=== PATIENT | male | born 1970 | race Caucasian/White ===

== ENCOUNTER 2020-04-01 08:45 | Outpatient (REF) | payer OTHER, SELFPAY ==
[2020-04-01 11:20] LABS: MANUAL DIFF FLAG NO
[2020-04-01 11:27] LABS: Basophils Percent Auto 0.3 % (0-2); Eosinophils Absolute Auto 0.1 X10*3/uL (0.0-0.4); Eosinophils Percent Auto 1.2 % (0-4); Hematocrit 42.8 % (42-52); Hemoglobin 14.4 g/dl (14.0-18.0); Imm Gran Abs Auto 0.03 X10*3/uL (0.00-0.03); Imm Gran Pct Auto 0.4 % (0.0-0.4); Lymphocytes Percent Auto 26.8 % (20-40); Mean Corpuscular HGB Conc 33.6 g/dl (31.0-36.0); Mean Corpuscular Hemoglobin 30.8 pg (27.0-33.0); Mean Corpuscular Volume 91.5 fL (80-98); Mean Platelet Volume 10.8 fL (9.4-12.4); Monocytes Absolute Auto 0.6 X10*3/uL (0.1-1.2); Monocytes Percent Auto 8.1 % (2-11); Neutrophils Absolute Auto 4.6 X10*3/uL (2.0-8.3); Neutrophils Percent Auto 63.2 % (45-73); Platelet Count 306 X10*3/uL (160-400); Red Blood Count 4.68 X10*6/uL (4.60-5.80); Red Cell Distribution Width 11.6 % (11.0-16.0); White Blood Count 7.3 X10*3/uL (4.8-10.8)
[2020-04-01 11:58] LABS: Glucose Urine UA NEG (NEG); Leukocyte Esterase Urine NEG (NEG); Nitrite Urine NEG (NEG); Urine Blood NEG (NEG); Urine Ketones NEG (NEG); Urine Protein NEG (NEG-TRACE)
[2020-04-01 12:00] LABS: Alanine Aminotransferase 54 U/L (0-40); Albumin Level 4.6 g/dL (3.5-5.0); Alkaline Phosphatase 67 U/L (39-117); Anion Gap 12 (12-20); Aspartate Amino Transferase 36 U/L (5-37); Bilirubin Total 0.9 mg/dL (0.0-1.0); Blood Urea Nitrogen 15 mg/dL (9-16); Calcium 9.5 mg/dL (8.4-10.2); Carbon Dioxide 30 mmol/L (22-29); Chloride 103 mmol/L (96-108); Cholesterol 185 mg/dL; Estimated Glomerular Filt Rate > 60; Glucose Fasting 112 mg/dL (60-99); HDL Cholesterol 57 mg/dL; LDL Cholesterol Calculated 99 mg/dl; Potassium 4.7 mmol/l (3.3-5.1); Sodium 140 mmol/L (135-145); Total Protein 7.9 g/dL (6.5-8.0); Triglycerides 149 mg/dL
[2020-04-01 12:06] LABS: Prostate Specific Antigen Scr 0.68 ng/mL (<0.05-4.0)
[2020-04-01 12:07] LABS: Appearance Urine CLEAR; Color Urine YELLOW
== END 2020-04-01 08:46 | disposition home or self-care (01) ==
LOC: HO.HMGCLDS 08:45
PROVIDERS: PCP Internal Medicine; Visit Provider Internal Medicine
DX: Z00.00 Encounter for general adult medical examination without abnormal findings (principal)
CPT/HCPCS: 36415; 80053; 80061; 81003; 84153; 85025

== ENCOUNTER 2020-04-21 11:33 | Day surgery (SDC) | payer OTHER, SELFPAY ==
[2020-04-16 09:28] VITALS: BMI 27.0
--- NOTE | 2020-04-18 10:17 | P.CONAN_ITS ---
Documented by User: Radhika Mcleod 04/18/20 10:19 HPI - Anesthesia Eval Consult details Narrative: 49yo M for Colonoscopy [facility] Past Medical History Medical History (Updated 04/16/20 @ 09:17 by Ashley Stern) Anxiety History of diverticulitis Hyperlipidemia Surgical History Surgical History (Updated 04/16/20 @ 09:17 by Ashley Stern) History of ankle surgery History of carpal tunnel surgery of right wrist Social History Social History Are you a primary ostomy care nurse to a significant other at home: No Do you presently have visiting nurse or other home services: No Smoking Status: Never smoker Use of substances other than those prescribed or required for medical reasons: Yes Substance Use Frequency: Occasionally Have you been hit, kicked, punched, or otherwise hurt by someone within the past year? If so, by whom?: No Advance Directives: No Advance Directives Information Provided: No Advance Directives on File: No Recently lost weight without trying: No Meds Allergies Allergy/AdvReac Type Severity Reaction Status Date / Time Penicillins [PENICILLINS] Allergy Intermediate HIVES Verified 04/21/20 11:47 Home Medications Medication Instructions Recorded Confirmed Type atorvastatin 1 tab PO DAILY 04/16/20 04/16/20 History bfulkrvxkoqs-jgmk-nrqvl acid 1 tab PO DAILY 04/16/20 04/16/20 History [Centrum] paroxetine HCl 1 tab PO DAILY 04/16/20 04/21/20 History Exam Exam Date and Time: April 18, 2020 1017 Height,Weight and Vital Signs: Height 5 ft 7.5 in Weight 79.379 kg Pertinent Lab Results Pertinent Lab Results: Laboratory Tests 04/01/20 04/01/20 09:03 09:03 WBC 7.3 Hgb 14.4 Hct 42.8 Plt Count 306 Sodium 140 Potassium 4.7 Chloride 103 Carbon Dioxide 30 H BUN 15 Creatinine 1.04 Assessment and Plan Assessment Anesthesia Assessment: Chart Reviewed Documented by User: Ginette Grubbs 04/21/20 13:15 [facility] Past Medical History Medical History (Updated 04/16/20 @ 09:17 by Ashley Stern) Anxiety History of diverticulitis Hyperlipidemia Surgical History Surgical History (Updated 04/16/20 @ 09:17 by Ashley Stern) History of ankle surgery History of carpal tunnel surgery of right wrist Social History Social History Are you a primary ostomy care nurse to a significant other at home: No Do you presently have visiting nurse or other home services: No Smoking Status: Never smoker Use of substances other than those prescribed or required for medical reasons: Yes Substance Use Frequency: Occasionally Have you been hit, kicked, punched, or otherwise hurt by someone within the past year? If so, by whom?: No Advance Directives: No Advance Directives Information Provided: No Advance Directives on File: No Recently lost weight without trying: No Meds Allergies Allergy/AdvReac Type Severity Reaction Status Date / Time Penicillins [PENICILLINS] Allergy Intermediate HIVES Verified 04/21/20 11:47 Home Medications Medication Instructions Recorded Confirmed Type atorvastatin 1 tab PO DAILY 04/16/20 04/16/20 History nhraxqcfpzbr-fikf-hjuva acid 1 tab PO DAILY 04/16/20 04/16/20 History [Centrum] paroxetine HCl 1 tab PO DAILY 04/16/20 04/21/20 History Exam Airway Mallampati Class: I TM Dist: >3cm Neck ROM: Full Heart: RRR Lungs: CTA BL Assessment and Plan Final Anesthetic Review NPO: Yes (Sip water med) ASA Class: II Final Preanesthetic Review: Meds/Allgs Chart Reviewed and Consent Obtained/Reviewed Patient Risk: Intermediate Procedure Risk: Intermediate Anesthetic Plan Anesthetic Plan: MAC: Disposition: Standard PACU
[2020-04-21 11:48] VITALS: BP 137/75; PULSE 63; RESP 16; TEMP 36.2; O2SAT 99
[2020-04-21] MEDS: Lactated Ringers 1,000 ML 100 ML IVCONT (12:06)
[2020-04-21 14:14] VITALS: BP 91/47; PULSE 61; RESP 16; TEMP 36.4; O2SAT 96
--- NOTE | 2020-04-21 14:16 | PM.OP ---
Brief Operative Note Date of Service: 04/21/20 Pre-op diagnosis: Screening Post-op diagnosis: other (Rectal polyps, Sigmoid diverticulosis, Small internal hemorrhoids) Procedure: Colonoscopy to cecum and TI with biopsy and removal of polyps Surgeon: Sathish Bird Anesthesia: MAC Estimated blood loss (mL): 3.0 Pathology: other (A. Rectal polyps) Condition: stable Disposition: PACU
[2020-04-21 14:29] VITALS: BP 108/69; PULSE 64; RESP 16; TEMP 36.4; O2SAT 97
--- NOTE | 2020-04-21 14:43 | OP_ITS ---
SURGEON: Sathish Bird MD INDICATIONS: The patient presents for evaluation of colorectal cancer screening. Full consent has been obtained from him for this, including risks of bleeding and perforation. PREOPERATIVE DIAGNOSIS: Colorectal cancer screening. POSTOPERATIVE DIAGNOSIS: PROCEDURE PERFORMED: Colonoscopy to the cecum and terminal ileum with biopsy and removal of polyps. ESTIMATED BLOOD LOSS: COMPLICATIONS: ANESTHESIA: Monitored anesthesia care. ASSISTANTS: SPECIMENS: POSTOPERATIVE DIAGNOSES: Colorectal cancer screening, small colon polyps, occasional sigmoid diverticulosis, small internal hemorrhoids. DESCRIPTION OF PROCEDURE: The patient was placed in the left lateral decubitus position. The digital rectal exam revealed no abnormalities. The Olympus video pediatric colonoscope was entered into the rectum and advanced easily to the cecum. Once in the cecum, I did identify normal-appearing cecal pouch with appendiceal orifice and a normal-appearing ileocecal valve. The terminal ileum was cannulated and appeared normal. The scope was withdrawn back in the colon. The entire cecum and ileocecal valve appeared normal. The scope was slowly withdrawn assessing all mucosal surfaces carefully. Preparation was excellent. There were occasional diverticula in the sigmoid colon. I did not visualize any sign of colitis nor angiodysplasia. In the rectum, were several flat less than 5 mm polyps, which were all biopsied and completely removed and placed in a same container. The scope was retroflexed in the rectum visualizing some minimal internal hemorrhoids, but no other pathology. The scope was straightened out and withdrawn from the patient. He tolerated the procedure well and was returned to the recovery area in stable condition. IMPRESSION: 1. Small rectal polyps, status post biopsy and removal. 2. Mild diverticulosis. 3. Internal hemorrhoids. PLAN: The results of the biopsies will be checked. If these are tubular adenoma, I would recommend a followup colonoscopy in 5 years. If they are only hyperplastic, I would recommend a followup colonoscopy in 10 years. He would otherwise see me on a p.r.n. basis. MD DUANE Fuentes/LILIA / [phone]
== END 2020-04-21 15:24 | disposition home or self-care (01) ==
PROVIDERS: PCP Internal Medicine; Visit Provider Internal Medicine
PROC: 0DJD8ZZ Inspection of Lower Intestinal Tract, Via Natural or Artificial Opening Endoscopic (ICD-10-PCS; CPT 45378; principal; 2020-04-21 12:30)
DX: Z12.11 Encounter for screening for malignant neoplasm of colon (principal); K62.1 Rectal polyp; K57.30 Diverticulosis of large intestine without perforation or abscess without bleeding; K64.8 Other hemorrhoids; Z88.0 Allergy status to penicillin
CPT/HCPCS: 45380; 88305

== ENCOUNTER 2022-09-03 08:48 | Outpatient (REF) | payer BC, SELFPAY ==
--- NOTE | ~2022-09-03 | XR_ITS ---
EXAMINATION: XR ANKLE, LEFT CLINICAL INFORMATION: Pain COMPARISON: None available. TECHNIQUE: AP, lateral, and mortise views of the left ankle. FINDINGS: There is a plate and screws in the distal fibular shaft. There is a single screw in the medial malleolus. Orthopedic hardware appears intact. No fracture. Mild arthritis at the anterior tibiotalar joint. Soft tissues are normal. XR/XR ankle LT min 3V IMPRESSION: Orthopedic hardware in the distal fibular shaft and medial malleolus. No fracture seen.
== END 2022-09-03 08:49 | disposition home or self-care (01) ==
LOC: HO.HOSX 08:48
PROVIDERS: Visit Provider Physician Assistant
DX: M25.572 Pain in left ankle and joints of left foot (principal); T14.8XXA Other injury of unspecified body region, initial encounter; X58.XXXA Exposure to other specified factors, initial encounter; Y93.9 Activity, unspecified; Y92.9 Unspecified place or not applicable; Y99.9 Unspecified external cause status
CPT/HCPCS: 73610; 99202

== ENCOUNTER 2022-11-09 13:55 | Outpatient (REF) | payer MEDICARE, SELFPAY ==
--- NOTE | ~2022-11-09 | XR_ITS ---
EXAMINATION: XR LUMBOSACRAL SPINE CLINICAL INFORMATION: Low back pain. COMPARISON: CT abdomen and pelvis of 02/04/2022. TECHNIQUE: 3 views of the lumbosacral spine. FINDINGS: There are 5 nonrib-bearing lumbar vertebrae. There is mild spurring at the L1-L2 level and L3-L4 level. Pedicles appear intact. No destructive bony lesion identified. No acute fracture, spondylolisthesis, or spondylolysis is identified. Sacroiliac joints unremarkable. Mild sclerosis about the facet joints present. Mildly increased sclerosis is seen at the L5-S1 level consistent with facet arthropathy. XR/XR lumbar spine 2-3V IMPRESSION: No acute fracture, spondylolisthesis, or spondylolysis of the lumbar spine. Mild bilateral facet arthropathy L5-S1.
== END 2022-11-09 13:56 | disposition home or self-care (01) ==
LOC: HO.XRAY 13:55
PROVIDERS: PCP Internal Medicine; Visit Provider Internal Medicine
DX: M54.50 Low back pain, unspecified (principal)
CPT/HCPCS: 72100

== ENCOUNTER 2023-07-18 08:54 | Outpatient (AMB) | payer MEDICARE, SELFPAY ==
--- NOTE | 2023-07-18 08:59 | MHC.OFFVIS ---
Intake Vital Signs 07/18/23 09:08 Height 5 ft 7.5 in Weight 170 lb BMI 26.2 Intake Visit Reasons: New prob RT hand RF & MF trigger Intake Note: Trevin a 52 year old right hand dominant male presents today for an evaluation of right hand RF & MF. Patient reports locking and catching for about a year, as well as his left hand middle finger. No previous tx. States pain in the mornings with waking up and fingers will be locked. Allergies Penicillins [PENICILLINS] Allergy (Intermediate, Verified 07/18/23 09:08) HIVES HPI New prob RT hand RF & MF trigger HPI Details 52-year-old male who presents to the office today for evaluation of right ring and middle finger pain for about 1 year. He states he has pain, catching, locking in his middle and ring finger which is aggravated in the mornings and he wakes up with his fingers locked. He has not had any treatment in the past. He does not have a history of diabetes. 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 [employer] All systems reviewed & are unremarkable except as noted in HPI and below Physical Exam Vital Signs: BMI result Body Mass Index 26.2 Const General: cooperative, healthy appearing, comfortable, no acute distress, well developed and alert Orientation/consciousness: patient oriented x3 HEENT Head: Yes normal to inspection, Yes normocephalic and Yes atraumatic Eyes General: appearance normal, both eyes and all related structures Neck Neck: Yes normal visual inspection and Yes no lymphadenopathy Resp Effort & Inspection: normal respiratory effort and able to speak in complete sentences Cardio Rate: regular rate Peripheral pulses: Peripheral pulses 2+ throughout GI Inspection: Yes normal to inspection Palpation (GI): Soft to palpation Skin General skin exam: no rashes or lesions noted Neuro General: patient oriented x3 Extrem Other: Right middle finger, right ring finger, & left middle finger: Tender nodule along the A1 trent with active catching and locking. NVI. Psych Appearance: grossly normal Mental Status: mental status grossly normal Assessment & Plan Assessment & Plan (1) Trigger finger, left: Code(s): M65.30 - Trigger finger, unspecified finger Qualifiers: Trigger finger location: middle finger Qualified Code(s): M65.332 - Trigger finger, left middle finger (2) Trigger finger, right ring finger: Code(s): M65.341 - Trigger finger, right ring finger Plan We discussed options which include conservative vs operative treatment. Since the patient has been symptomatic for several months and it is impacting their daily life, the decision was made to undergo Trigger release. We discussed risk, benefits and alternatives. Risk including but not limited to infection, stiffness, ongoing trigger or catching. He does understand all this and would like to proceed with right middle and ring finger trigger release with Dr. Velazquez. He will be booked accordingly. Consents were signed today Patient Instructions: Scribed for Chad Galaviz PA-C, by Say Guaman medical territory manager, on 07/18/2023 at 9:00 AM FILIPE. Chad La PA-C, have personally reviewed and agree with the information entered by the scribe. Coding Level of Care Code Est Pt Level 4 (80616) Diagnoses Trigger middle finger of left hand M65.332 Trigger finger location: middle finger Trigger finger, right ring finger M65.341
[2023-07-18 09:08] VITALS: BMI 26.2
== END 2023-07-18 10:00 | disposition home or self-care (01) ==
PROVIDERS: PCP Internal Medicine; Visit Provider Physician Assistant
DX: M65.332 Trigger finger, left middle finger (principal); M65.341 Trigger finger, right ring finger
CPT/HCPCS: 99214

== ENCOUNTER → 2023-07-18 08:54 | Outpatient (BNVA) | payer MEDICARE, SELFPAY | PROVIDERS: PCP Internal Medicine; Visit Provider Physician Assistant | DX: M65.332 Trigger finger, left middle finger (principal); M65.341 Trigger finger, right ring finger | CPT/HCPCS: 99212 ==

== ENCOUNTER 2023-08-15 08:14 | Day surgery (SDC) | payer BC, SELFPAY ==
--- NOTE | 2023-08-15 09:09 | MHC.SHP ---
Pre-Procedural Eval Section A - 24 Hr Update-Section A only Date of Service: 08/15/23 The patient is an INPATIENT: No Changes since office visit: No Cold of Flu in the past 2 weeks, No New Medical Problems, No Changes in Medication and No Patient answered all questions The patient has been examined within 24 hours of the surgical procedure. The History & Physical has been completed within 30 days and I have reviewed it.: Yes Section B - Complete if H&P > 30 days Chief Complaint: trigger finger 3rd and 4th digits Allergies: Allergies Allergy/AdvReac Type Severity Reaction Status Date / Time Penicillins [PENICILLINS] Allergy Intermediate HIVES Verified 07/18/23 09:08 Exam Exam Comment: Right middle and ring finger trigger fingers Plan Diagnosis/Plan: Unchanged I have reviewed the history and physical and performed a pertinent physical examination on my patient. No changes have occurred unless specified. Time Spent With Patient Time: Total time managing care of this patient today ____ minutes.
--- NOTE | 2023-08-15 09:10 | W.PM.OPN ---
Operative Note Operative Note Date of Service: 08/15/23 Narrative: Operative Note Preop diagnosis: 1. Right middle finger Trigger finger 2. Right ring finger trigger finger Postop diagnosis: Same Procedure: 1. Right ring finger A1 trent release 2. Right middle finger A1 trent release Surgeon: Vy Velazquez MD Anesthesia: local block using 1% lidocaine with epinephrine Findings: No locking or catching after A1 trent release EBL: Less than 5 mL Tourniquet time: None Specimens: None Complications: None Disposition: Brought to recovery room in stable condition Plan: Follow-up for 10-14 days for wound check and suture removal Indications: The patient is 52 years old, with right middle finger and right ring finger trigger fingers that have been unresponsive to nonoperative management. The risks and benefits of operative treatment including but not limited to risk of damage to blood vessels, nerves, tendons, infection, persistent pain, persistent symptoms, recurrence or possible need for additional surgery were discussed with the patient and the patient wishes to proceed with surgery. Procedure: Once consent was obtained a local block was performed in the preop area using a combination of 1% lidocaine with epinephrine. The patient was then brought back to the operating suite and placed on the operative table in supine position. The right upper extremity was prepped and draped in a standard surgical fashion. Once assured that we had a good block, a 1.5 cm oblique incision was made centered over the A1 trent of the right ring finger . The incision was made through the skin to the subcutaneous tissues using a #15 blade. Careful dissection was made down to the level of the A1 trent using tenotomy scissors, with care being taken to protect the nearby neurovascular structures. A longitudinal incision was made in the A1 trent 1st using a #15 blade, then using tenotomy scissors under direct visualization. The A1 trent was noted to be thickened. Following our A1 trent release, we no longer saw any locking or catching of the digit with flexion and extension. Once assured that we had a good block, a 1.5 cm oblique incision was made centered over the A1 trent of the right middle finger . The incision was made through the skin to the subcutaneous tissues using a #15 blade. Careful dissection was made down to the level of the A1 trent using tenotomy scissors, with care being taken to protect the nearby neurovascular structures. A longitudinal incision was made in the A1 trent 1st using a #15 blade, then using tenotomy scissors under direct visualization. The A1 trent was noted to be thickened. Following our A1 trent release, we no longer saw any locking or catching of the digit with flexion and extension. Once satisfied with our A1 trent release the wound was copiously irrigated with normal saline and hemostasis was obtained with a brief period of local pressure. The skin edges were reapproximated with some 5.0 nylon suture material and a sterile dressing was applied. The patient appears to have tolerated the procedure well and with no complications. All digits were well vascularized at the conclusion of the case.
[2023-08-15 09:24] VITALS: BMI 27.0
[2023-08-15 13:02] VITALS: BP 136/75; PULSE 103; RESP 16; O2SAT 97
== END 2023-08-15 13:04 | disposition home or self-care (01) ==
PROVIDERS: PCP Internal Medicine; Visit Provider Orthopaedic Surgery
PROC: (CPT 26055; principal; 2023-08-15 10:30)
DX: M65.331 Trigger finger, right middle finger (principal); M65.341 Trigger finger, right ring finger; E78.5 Hyperlipidemia, unspecified; F41.9 Anxiety disorder, unspecified; Z88.0 Allergy status to penicillin; Z98.890 Other specified postprocedural states
CPT/HCPCS: 26055 ×2; J0171

== ENCOUNTER → 2023-08-15 08:14 | Outpatient (BNV) | payer BC, SELFPAY | PROVIDERS: PCP Internal Medicine; Visit Provider Orthopaedic Surgery | DX: M65.341 Trigger finger, right ring finger (principal); M65.331 Trigger finger, right middle finger | CPT/HCPCS: 26055 ==

== ENCOUNTER 2023-08-26 08:18 | Outpatient (AMB) | payer MEDICARE, SELFPAY ==
--- NOTE | 2023-08-26 08:21 | MHC.OFFVIS ---
Intake Vital Signs 08/26/23 08:22 Height 5 ft 7 in Weight 175 lb BMI 27.4 Handedness Right Intake Visit Reasons: PO-Rt MF & RF Trigger Release 08/15/23 Intake Note: Trevin is a 52 year old right hand dominant male who presents today for a post op appointment s/p Rt MF & RF Trigger Release 08/15/23. Patient reports he is doing well, however he notices that he is not able to bend his finger all the way to make a complete fist. Allergies Penicillins [PENICILLINS] Allergy (Intermediate, Verified 08/26/23 08:23) HIVES HPI PO-Rt MF & RF Trigger Release 08/15/23 HPI Details 52-year-old male who presents in the office today 11 days status post right middle finger and right ring finger A1 trent release, which was performed on 08/15/[address] Velazquez. While in the office today the patient reports overall he is doing well. However, he reports he is unable to bend his middle and ring finger to make a closed fist. 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 Sutures intact. No surrounding erythema or drainage. No signs of infection. Able to make a closed fist, not able to close fist tightly. Able to perform full finger extension. Sensation intact. Assessment & Plan Assessment & Plan (1) Trigger finger, right ring finger: Onset Date: ~08/15/23 Comment: Right ring finger A1 trent release; Dr. Velazquez Code(s): M65.341 - Trigger finger, right ring finger (2) Trigger finger, right middle finger: Onset Date: ~08/15/23 Comment: Right middle finger A1 trent release; Dr. Velazquez Code(s): M65.331 - Trigger finger, right middle finger Plan Mr. Sánchez is a 52-year-old male who presents in the office today 11 days status post right middle finger and right ring finger A1 trent release, which was performed on 08/15/[address] Velazquez. While in the office today the patient reports overall he is doing well. However, he reports he is unable to bend his middle and ring finger to make a closed fist. Sutures were removed and steri-stripes were applied. I demonstrated exercises to the patient while in the office today on ROM. Follow up will be PRN, or sooner if needed. Patient Instructions: Scribed by oNry Edge, medical and scientific illustrator, for Leah Hamilton PA-C on 08/26/2023 at 8:21 am, EST. Coding Level of Care Code Global (14718) Diagnoses Trigger finger, right ring finger M65.341 Trigger finger, right middle finger M65.331
[2023-08-26 08:22] VITALS: BMI 27.4
== END 2023-08-26 08:52 | disposition home or self-care (01) ==
PROVIDERS: PCP Internal Medicine; Visit Provider Physician Assistant
DX: M65.341 Trigger finger, right ring finger (principal); M65.331 Trigger finger, right middle finger
CPT/HCPCS: 99024

== ENCOUNTER → 2023-08-26 08:18 | Outpatient (BNVA) | payer MEDICARE, SELFPAY | PROVIDERS: PCP Internal Medicine; Visit Provider Physician Assistant | DX: M65.341 Trigger finger, right ring finger (principal); M65.331 Trigger finger, right middle finger | CPT/HCPCS: 99212 ==

== ENCOUNTER 2024-01-10 07:33 | Outpatient (REF) | payer MEDICARE, SELFPAY ==
[2024-01-10 10:29] LABS: MANUAL DIFF FLAG NO
[2024-01-10 10:36] LABS: Basophils Percent Auto 0.5 % (0-2); Eosinophils Absolute Auto 0.1 X10*3/uL (0.0-0.4); Eosinophils Percent Auto 2.5 % (0-4); Hematocrit 38.3 % (42.0-52.0); Hemoglobin 13.4 g/dl (14.0-18.0); Imm Gran Abs Auto 0.02 X10*3/uL (0.00-0.03); Imm Gran Pct Auto 0.4 % (0.0-0.4); Lymphocytes Absolute Auto 1.6 X10*3/uL (1.2-4.9); Lymphocytes Percent Auto 27.6 % (20-40); Mean Corpuscular Hemoglobin 31.4 pg (27.0-33.0); Mean Corpuscular Volume 89.7 fL (80.0-98.0); Mean Platelet Volume 10.2 fL (9.4-12.4); Monocytes Absolute Auto 0.4 X10*3/uL (0.1-1.2); Monocytes Percent Auto 7.5 % (2-11); Neutrophils Absolute Auto 3.5 x10*3/uL (2.0-8.3); Neutrophils Percent Auto 61.5 % (45-73); Platelet Count 286 X10*3/uL (160-400); Red Blood Count 4.27 X10*6/uL (4.60-5.80); Red Cell Distribution Width 11.9 % (11.0-16.0); White Blood Count 5.6 X10*3/uL (4.8-10.8)
[2024-01-10 11:04] LABS: Alanine Aminotransferase 59 U/L (0-40); Albumin Level 4.4 g/dL (3.5-5.0); Alkaline Phosphatase 60 U/L (39-117); Anion Gap 14 (12-20); Aspartate Amino Transferase 36 U/L (5-37); Bilirubin Total 0.8 mg/dL (0.0-1.0); Blood Urea Nitrogen 18 mg/dL (9-16); Calcium 9.9 mg/dL (8.4-10.2); Carbon Dioxide 24 mmol/L (22-29); Chloride 105 mmol/L (96-108); Cholesterol 197 mg/dL (<200); Estimated Glomerular Filt Rate > 60; Glucose Fasting 119 mg/dL (60-99); HDL Cholesterol 60 mg/dL (>40); LDL Cholesterol Calculated 83 mg/dL (<100); Potassium 3.7 mmol/L (3.3-5.1); Sodium 139 mmol/L (135-145); Total Protein 7.7 g/dL (6.5-8.0); Triglycerides 270 mg/dL (<150)
[2024-01-10 11:36] LABS: Prostate Specific Antigen 0.71 ng/mL (<0.05-4.0)
== END 2024-01-10 07:34 | disposition home or self-care (01) ==
LOC: HO.HMGCLDS 07:33
PROVIDERS: PCP Internal Medicine; Visit Provider Internal Medicine
DX: E78.00 Pure hypercholesterolemia, unspecified (principal); Z12.5 Encounter for screening for malignant neoplasm of prostate; K63.5 Polyp of colon; K57.92 Diverticulitis of intestine, part unspecified, without perforation or abscess without bleeding
CPT/HCPCS: 36415; 80053; 80061; 84153; 85025

== ENCOUNTER 2024-04-10 09:00 | Outpatient (REF) | payer MEDICARE, SELFPAY ==
[2024-04-10 09:58] LABS: MANUAL DIFF FLAG NO
[2024-04-10 10:07] LABS: Basophils Percent Auto 0.7 % (0-2); Eosinophils Absolute Auto 0.1 X10*3/uL (0.0-0.4); Eosinophils Percent Auto 1.7 % (0-4); Hematocrit 39.3 % (42.0-52.0); Hemoglobin 13.6 g/dl (14.0-18.0); Imm Gran Abs Auto 0.01 X10*3/uL (0.00-0.03); Imm Gran Pct Auto 0.2 % (0.0-0.4); Lymphocytes Absolute Auto 1.6 X10*3/uL (1.2-4.9); Mean Corpuscular HGB Conc 34.6 g/dl (31.0-36.0); Mean Corpuscular Hemoglobin 31.2 pg (27.0-33.0); Mean Corpuscular Volume 90.1 fL (80.0-98.0); Mean Platelet Volume 10.2 fL (9.4-12.4); Monocytes Absolute Auto 0.4 X10*3/uL (0.1-1.2); Monocytes Percent Auto 6.4 % (2-11); Neutrophils Absolute Auto 3.7 x10*3/uL (2.0-8.3); Platelet Count 269 X10*3/uL (160-400); Red Blood Count 4.36 X10*6/uL (4.60-5.80); Red Cell Distribution Width 11.5 % (11.0-16.0); White Blood Count 5.8 X10*3/uL (4.8-10.8)
[2024-04-10 10:28] LABS: Estimated Average Glucose 120 mg/dL; Hemoglobin A1C 139.1083 umol/L; Hemoglobin A1c % 5.8 % (<6.0)
[2024-04-10 10:48] LABS: Anion Gap 11 (12-20); Blood Urea Nitrogen 14 mg/dL (9-16); Calcium 9.4 mg/dL (8.4-10.2); Carbon Dioxide 28 mmol/L (22-29); Chloride 102 mmol/L (96-108); Estimated Glomerular Filt Rate > 60; Glucose Random 163 mg/dL (60-115); Iron 117 mcg/dL (45-160); Percent Iron Saturation 46 % (15-50); Potassium 3.9 mmol/L (3.3-5.1); Sodium 137 mmol/L (135-145); Total Iron Binding Capacity 255 mcg/dL (228-428); Unsaturated Iron Binding 138 ug/dL
== END 2024-04-10 09:01 | disposition home or self-care (01) ==
LOC: HO.HMGCLDS 09:00
PROVIDERS: PCP Internal Medicine; Visit Provider Internal Medicine
DX: E78.5 Hyperlipidemia, unspecified (principal); R73.03 Prediabetes; D64.9 Anemia, unspecified
CPT/HCPCS: 36415; 80048; 83036; 83540; 85025

== ENCOUNTER 2024-10-17 15:32 | Outpatient (AMB) | payer MEDICARE, SELFPAY ==
--- NOTE | 2024-10-17 15:29 | MHC.PC.OV ---
Vital Signs 10/17/24 16:06 Height 5 ft 7.5 in Weight 170 lb BMI 26.2 BP 120/70 Blood Pressure Location Lt brachial Position Sitting Pulse 63 Pulse Source Pulse Oximeter Temp 97.8 F Temp Source Axillary Pulse Oximetry (%) 98 Oxygen Delivery Method Room Air Intake Visit Reasons: Routine Other Spatial Scientist Required: No Accompanied by: Self / Same As Patient Allergies Penicillins [PENICILLINS] Allergy (Intermediate, Verified 10/17/24 15:29) HIVES Tobacco use date assessed: 10/17/24 Dental Screening Dental Screen Date: 10/17/24 Did you have a dental visit in the last 12 months?: Yes Did you have a dental problem in the last 6 months where you did not have access to dental care?: No [facility] Medical History (Updated 10/17/24 @ 16:30 by Michael Harrington MD) History of diverticulitis Anxiety Hyperlipidemia Surgical History History of colonoscopy (~04/21/20) History of ankle surgery History of carpal tunnel surgery of right wrist Family History (Updated 10/17/24 @ 16:11 by Lilly Hudson MA) Mother No problems noted. Father No problems noted. 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 1. Little interest or pleasure in doing things: not at all 2. Feeling down, depressed, or hopeless: several days (sometimes) 3. Trouble falling or staying asleep, or sleeping too much: not at all 4. Feeling tired or having little energy: not at all 5. Poor appetite or overeating: not at all 6. Feeling bad about yourself - or that you are a failure or have let yourself or your family down: not at all 7. Trouble concentrating on things, such as reading the newspaper or watching television: not at all 8. Moving or speaking so slowly that other people could have noticed. Or the opposite - being so fidgety or restless that you have been moving around a lot more than usual: not at all 9. Thoughts that you would be better off or of hurting yourself in some way: not at all Total score: 1 Source: Developed by Drs. Sathish Conway, Josie Diamond, Marcin Fox and colleagues, with an educational bill from [employer]. Thrive Questionnaire Date Thrive assessed: 10/17/24 I am a: Patient Within the past 12 months, did the food you bought not last and you didn't have the money to get more?: Never true Within the past 12 months, did you worry whether your food would run out before you got money to buy more?: Never true Do you have trouble paying for medicines?: No Do you have trouble getting transportation to medical appointments?: No Do you have trouble paying your heating and electricity bill?: No Do you have trouble taking care of your child, family member or friend?: No Do you have trouble with day-to-day activities such as bathing, preparing meals, shopping, managing finances, etc.?: No Are you currently unemployed and looking for a job?: No Are you interested in more education?: No THRIVE Score: 0 AUDIT C Alcohol Use Questionnaire (AUDIT-C) 1. How often do you have a drink containing alcohol?: Monthly or less 2. How many drinks containing alcohol do you have on a typical day when you are drinking?: 1 or 2 3. How often do you have six or more drinks on one occasion?: Less than monthly Total Score: 2 JC-7 AMB Questionnaire JC-7 Date JC - 7 assessed: 10/17/24 Feeling nervous, anxious, or on edge: 0 = Not at all Not being able to stop or control worryin = Not at all Worrying too much about different things: 0 = Not at all Trouble relaxin = Not at all Being so restless that it is hard to sit still: 0 = Not at all Becoming easily annoyed or irritable: 0 = Not at all Feeling afraid as if something awful might happen: 0 = Not at all Total JC-7 score (0-4 normal; 5-9 mild; 10-14 moderate; 15-21 severe): 0 Source: Developed by Drs. Sathish Conway, Josie Diamond, Marcin Fox and colleagues, with an educational bill from [employer]. Physical exam (Primary Care) Vital Signs: Last Vital Signs Temp 97.8 F 10/17/24 16:06 Pulse 63 10/17/24 16:06 BP 120/70 10/17/24 16:06 Pulse Ox 98 10/17/24 16:06 Oxygen Delivery Method Room Air 10/17/24 16:06 BMI result Body Mass Index 26.2 Tobacco/Smoking Status: Tobacco use Status Tobacco use date assessed 10/17/24 10/17/24 15:31 Patient Tobacco Use Status Never used Tobacco 10/17/24 16:14 e-Cigarette/Vaping Use Never Used 10/17/24 15:31 PHQ-9: PHQ-9 Score PHQ-9: Total score 1 10/17/24 16:14 Thrive Assessment: Date of Thrive Assessment Date Thrive assessed 10/17/24 10/17/24 15:31 Coding Level of Care Code New Pt Level 4 (07613) Complex EM visit Add On G2211 Diagnoses Hyperlipidemia E78.5 Assessment & Plan Assessment & Plan (1) Hyperlipidemia: Code(s): E78.5 - Hyperlipidemia, unspecified Category: Medical Plan: History of Present Illness - The patient is a 53-year-old male presenting with an annual wellness examination, including concerns regarding hypercholesterolemia, iron deficiency anemia, and hyperglycemia. - Hypercholesterolemia: The patient has experienced high cholesterol for the past 30 years and remains on medication for management. Concern over potential liver side effects was expressed. - Iron Deficiency Anemia: Low iron levels were identified by the patient over the past one to two years. The patient followed a recommendation to take a multivitamin with iron, although outcomes are currently unclear. - Hyperglycemia: The patient reports previous elevations in blood sugar levels, with no detailed information regarding the specific values or dates of these findings. 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 - Engages in regular physical activity, playing hockey twice a week and walking daily with a dog. - Resides with his , with adult children; one son recently moved to [facility] and a daughter started working as a nurse. - Occasional alcohol consumption, not daily. - The patient denies cigarette smoking but did not specify other substances. Review of Systems - General: Denies significant recent health changes. - Cardiovascular: Reports high cholesterol but denies further cardiovascular symptoms. - Hematological: Reports prior low iron levels but denies alternative hematological symptoms. - Endocrine: Reports previous high blood sugar but without specific current endocrine symptoms. Physical Exam General: Cooperative and healthy appearing Nutritional Appearance: Well nourished Orientation/consciousness: Patient oriented x3 Limitations: No limitations Head: Normal to inspection General: Appearance normal, both eyes and all related structures Neck: Normal visual inspection Chest: Normal palpation of entire chest wall Respiratory: Normal respiratory effort Neurology: Patient oriented x3 Results Plan 1. Hypercholesterolemia - Order lipid panel for assessment. - Continue medication; monitor liver function; advise dietary adjustments. 2. Iron Deficiency Anemia - Conduct lab tests for confirmation and management. - Consider continuation of iron supplementation and dietary iron sources. 3. Hyperglycemia - Perform blood glucose testing. - Lifestyle changes will be discussed if needed based on test outcomes. Discussion Notes I reviewed the patient's concerns during our discussion. For hypercholesterolemia, I addressed the need to continue current medication while emphasizing the importance of routine monitoring through laboratory tests to check for efficacy and any potential liver-related side effects. We discussed lifestyle and nutritional changes that could help manage cholesterol levels. Regarding iron deficiency anemia, I mentioned the importance of continued supplementation and suggested dietary adjustments to improve iron levels, with a plan to reassess through blood tests. For hyperglycemia, I explained plans for assessing current blood glucose levels and discussed potential management strategies including lifestyle and dietary changes that could be beneficial depending on test results. Additionally, the need for long-term monitoring of these conditions during follow-ups was emphasized. Patient Instructions - Get your lab work done at the designated laboratory for lipid levels and iron status. - Continue taking your prescribed cholesterol medication. - Continue your multivitamin with iron as advised and ensure a diet rich in iron. - Follow a healthy diet and maintain regular exercise for optimal blood sugar control. - Return for results discussion and further management based on lab outcomes. Orders: Orders Complete Blood Count no Diff Today E78.5 - Hyperlipidemia, unspecified Basic Metabolic Panel Today E78.5 - Hyperlipidemia, unspecified Lipid Panel Today E78.5 - Hyperlipidemia, unspecified Liver Panel Today E78.5 - Hyperlipidemia, unspecified Thyroid Stimulating Hormone Today E78.5 - Hyperlipidemia, unspecified UA and rflx microscopic Today E78.5 - Hyperlipidemia, unspecified
--- OUTSIDE RECORDS SUMMARY | 2024-10-17 15:42 | XMS_ITS | Patient Health Record ---
Author Organization [facility] Address [address] [place] [address] Care Team Providers Care Needle Board Repairer Name Role Phone Kevan Richards MD Primary Care Provider Sathish Iglesias Unavailable [phone] Allergies Allergen (clinical drug ingredient) Drug/Non Drug Allergy documented on EMR Reaction Allergy Type Onset Date Status penicillamine Penicillamine Unknown Drug Allergy Active Reason For Referral No Information Medications Medication SIG (Take, Route, Fr equency, Duration) Notes Start Date End Date Status PARoxetine HCl Activ e Centrum Adults Activ e Atorvastatin Calcium Active Immunizations Vaccine Route Administration Date Status Comme nts Influenza Unknown 02/27/2020 Administered Social History Tobacco Use: Social History Observation Description Date Details (start date - stop date) Never Smoker NA - NA Tobacco Use/Smoking Question Answer Notes Patient is a nonsmoker Alcohol Screen Question Answer Notes Did you have a drink contain ing alcohol in the past year? Yes How often did you have a dri nk containing alcohol in the past year? 2 to 3 times a week (3 points) How often did you have 6 or more drinks on one occasion in the past year? Less than monthly (1 point) Points 4 Interpretation Positive Section Notes: Nonsmoker; occ alcohol on e s Problems Problem Type SNOMED Code ICD Code Onset Dates Problem Status W/U Status Risk Notes Problem Screening for malignant neoplasm of colon (103752921) Encounter for screening for malignant neoplasm of colon (Z12.11) Active confirmed Problem Preprocedural examination (869711820885624) Preprocedural examination (Z01.818) Active confirmed Plan Of Treatment Future Test Test Name Order Date COLONOSCOPY 04/02/2020 Insurance Providers Payer Name Payer Address Payer Phone Subscriber Number Group Number Insured Name Patient Relationship to Insured Coverage Start Date Coverage End Date [place] [address] [place], [place] [phone] [id number] SAMM SERRANO Self - patient is the insured Medical (General) History Medical History History ICD Code Hyperlipidemia Anxiety Diverticulitis in 02/2020-treated with o utpatient antibiotics Denies [place],DM,CVA,Lung disease,renal dise ase Surgical History Surgery Date(Month/Year) ankle surgery - broken left carpal tunnel - right wrist
[2024-10-17 16:06] VITALS: BP 120/70; PULSE 63; TEMP 36.6; O2SAT 98; BMI 26.2
== END 2024-10-17 16:28 | disposition home or self-care (01) ==
LOC: HO.HMCHD 15:33
PROVIDERS: PCP Internal Medicine; Visit Provider Internal Medicine
DX: E78.5 Hyperlipidemia, unspecified (principal)

== ENCOUNTER → 2024-10-17 15:32 | Outpatient (BNVA) | payer MEDICARE, SELFPAY | PROVIDERS: PCP Internal Medicine; Visit Provider Internal Medicine | DX: E78.00 Pure hypercholesterolemia, unspecified (principal); D50.9 Iron deficiency anemia, unspecified; R73.9 Hyperglycemia, unspecified | CPT/HCPCS: 96127; 99202 ==

== ENCOUNTER 2024-10-29 09:19 | Outpatient (REF) | payer MEDICARE, SELFPAY ==
--- OUTSIDE RECORDS SUMMARY | 2024-10-29 10:03 | XMS_ITS | Patient Health Record ---
Author Organization [facility] Address [address] [place] [address] Care Team Providers Care Dairy Store Manager Name Role Phone Kevan Richards MD Primary Care Provider Sathish Iglesias Unavailable [phone] Allergies Allergen (clinical drug ingredient) Drug/Non Drug [...] Problem Status W/U Status Risk Notes Problem Encounter for screening for malignant neoplasm of colon (Z12.11) Active confirmed Problem Preprocedural examination ([id number]) Preprocedural examination (Z01.818) Active confirmed Plan Of Treatment Future Test Test Name Order Date COLONOSCOPY 04/02/2020 Insurance Providers Payer Name Payer Address Payer Phone Subscriber Number Group Number Insured Name Patient Relationship to Insured Coverage Start Date Coverage End Date [employer] [address] [place] [phone] [id number] SAMM SERRANO Self - patient is the insured Medical (General) History Medical History History ICD Code Hyperlipidemia Anxiety Diverticulitis in 02/2020-treated with o utpatient antibiotics Denies [place],DM,CVA,Lung disease,renal dise ase Surgical History Surgery Date(Month/Year) ankle surgery - broken left carpal tunnel - right wrist
[2024-10-29 13:08] LABS: Appearance Urine Clear; Color Urine Yellow; Glucose Urine UA Negative (Negative); Leukocyte Esterase Urine Negative (Negative); Nitrite Urine Negative (Negative); Specific Gravity - Urine 1.015 (1.005-1.025); Urine Blood Negative (Negative); Urine Ketones Negative (Negative); Urine Protein Negative (Neg-Trace)
[2024-10-29 13:31] LABS: Hematocrit 39.2 % (42.0-52.0); Hemoglobin 13.4 g/dl (14.0-18.0); Mean Corpuscular HGB Conc 34.2 g/dl (31.0-36.0); Mean Corpuscular Hemoglobin 31.3 pg (27.0-33.0); Mean Corpuscular Volume 91.6 fL (80.0-98.0); Mean Platelet Volume 10.5 fL (9.4-12.4); Platelet Count 294 X10*3/uL (160-400); Red Blood Count 4.28 X10*6/uL (4.60-5.80); Red Cell Distribution Width 11.8 % (11.0-16.0); White Blood Count 4.9 X10*3/uL (4.8-10.8)
[2024-10-29 13:42] LABS: Estimated Average Glucose 114 mg/dL; Hemoglobin A1c % 5.6 % (<6.0); Total Hemoglobin (HGBA1C) 3546.0428 umol/L
[2024-10-29 13:49] LABS: Alanine Aminotransferase 43 U/L (0-40); Albumin Level 4.5 g/dL (3.5-5.0); Alkaline Phosphatase 62 U/L (39-117); Anion Gap 10 (12-20); Aspartate Amino Transferase 35 U/L (5-37); Bilirubin Direct 0.3 mg/dL (0.0-0.5); Bilirubin Total 0.8 mg/dL (0.0-1.0); Blood Urea Nitrogen 11 mg/dL (9-16); Calcium 9.5 mg/dL (8.4-10.2); Carbon Dioxide 29 mmol/L (22-29); Chloride 105 mmol/L (96-108); Cholesterol 167 mg/dL (<200); Estimated Glomerular Filt Rate > 60; Glucose Random 105 mg/dL (60-115); HDL Cholesterol 60 mg/dL (>40); LDL Cholesterol Calculated 83 mg/dL (<100); Sodium 140 mmol/L (135-145); Total Protein 7.4 g/dL (6.5-8.0); Triglycerides 121 mg/dL (<150)
[2024-10-29 14:07] LABS: Thyroid Stimulating Hormone 1.19 uIU/mL (0.32-4.0)
== END 2024-10-29 09:20 | disposition home or self-care (01) ==
LOC: HO.HMGCLDS 09:19
PROVIDERS: PCP Internal Medicine; Visit Provider Internal Medicine
DX: R73.9 Hyperglycemia, unspecified (principal); E78.5 Hyperlipidemia, unspecified
CPT/HCPCS: 36415; 80048; 80061; 80076; 81003; 83036; 84443; 85027

== ENCOUNTER 2025-01-15 13:19 | Outpatient (REF) | payer BC, SELFPAY ==
[2025-01-15 16:50] LABS: PSA,Total (Free>4and<10) 0.92 ng/mL (0.00-4.00)
== END 2025-01-15 13:20 | disposition home or self-care (01) ==
LOC: HO.HMGCLDS 13:19
PROVIDERS: PCP Internal Medicine; Visit Provider Internal Medicine
DX: Z12.5 Encounter for screening for malignant neoplasm of prostate (principal)
CPT/HCPCS: 36415; 84153

== ENCOUNTER 2025-03-15 08:33 | Outpatient (AMB) | payer BC, SELFPAY ==
--- NOTE | 2025-03-15 08:09 | A.OFFPC_ITS ---
Vital Signs 03/15/25 08:10 Height 5 ft 7.5 in Weight 174 lb BMI 26.8 BP 128/80 Blood Pressure Location Lt brachial Position Sitting Pulse 62 Pulse Source Pulse Oximeter Temp 98.2 F Temp Source Temporal Artery Scan Pulse Oximetry (%) 98 Oxygen Delivery Method Room Air Intake Visit Reasons: ROBI/Dr. Maloney, re: Physical/ B12 injections Market Master Required: No Accompanied by: Self / Same As Patient Allergies Penicillins (PENICILLINS) Allergy (Intermediate, Verified 03/15/25 08:10) HIVES Medication List - Last Reconciled 03/15/25 by Gerardo Guajardo MD atorvastatin 20 mg PO BEDTIME yjocrdwvrysw-prim-ljtby acid 18-400 mg-mcg (Centrum) 1 tab PO DAILY paroxetine HCl 10 mg PO DAILY Tobacco use date assessed: 03/15/25 Dental Screening Dental Screen Date: 03/15/25 Did you have a dental visit in the last 12 months?: Yes Did you have a dental problem in the last 6 months where you did not have access to dental care?: No HPI HPI Comments History of Present Illness Details The patient is a 54 year old male presenting with lethargy and for follow-up on self-initiated vitamin B12 injections. He reports feeling lethar gic, having trouble waking up in the morning, taking naps during the day, and experiencing some cognitive clouding. Due to a history of low red blood cells and prediabetes, he independently started taking B12 injections and feels a temporary, placebo-like improvement in energy that subsequently wears off. The patient has a history of low iron levels and was previously instructed to take a daily vitamin with iron. His labs from approximately one year ago showed a hemoglobin of 13.4, a normal MCV, and an iron level of 117. He also has a history of hyperlipidemia and has been on a statin since age 24, with his current atorvastatin dose having been reduced from 40 mg to 20 mg. He is treated for anxiety with paroxetine 10 mg and has been unable to successfully wean off the medication after four attempts. 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 His sleep schedule is inconsistent, partly due to late hockey games, and he has difficulty falling asleep, often using screens late into the night. Medical History: - Prediabetes - Anxiety, chronic, with four failed att empts to wean off paroxetine - Hyperlipidemia, on statin therapy sin e age 24 - History of borderline anemia (hemoglob in 13.4) - History of low iron, managed with hair y vitamin with iron Medications: - Atorvastatin 20 mg for hyperlipidemia - Paroxetine 10 mg for anxiety - Daily vitamin with iron for history of low iron - Vitamin B12 injections (self-initiated ) for energy Diagnostic Results: - Labs from October (4 months prior): TSH n ormal. - Labs from March (1 year prior): Hem oglobin 13.4, MCV normal, Iron 117. Social History: - Employment: Works as an hatchery manager [employer]. - Exercise: Reports being active, playin g hockey twice a week and running occasionally. - Sleep: Reports an inconsistent sleep s chedule and uses screens late at night. - Diet: Avoids coffee and energy drinks after 2:00 PM. [facility] Medical History (Updated 03/15/25 @ 09:30 by Gerardo Guajardo MD) Fatigue History of diverticulitis Anxiety Hyperlipidemia Surgical History History of colonoscopy (~04/21/20) History of ankle surgery History of carpal tunnel surgery of right wrist Family History (Updated 03/15/25 @ 08:55 by Lilly Hudson MA) Mother No problems noted. Father No problems noted. 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 1. Little interest or pleasure in doing things: not at all 2. Feeling down, depressed, or hopeless: several days 3. Trouble falling or staying asleep, or sleeping too much: nearly every day 4. Feeling tired or having little energy: nearly every day 5. Poor appetite or overeating: not at all 6. Feeling bad about yourself - or that you are a failure or have let yourself or your family down: not at all 7. Trouble concentrating on things, such as reading the newspaper or watching television: not at all 8. Moving or speaking so slowly that other people could have noticed. Or the opposite - being so fidgety or restless that you have been moving around a lot more than usual: not at all 9. Thoughts that you would be better off or of hurting yourself in some way: not at all Total score: 7 Source: Developed by Drs. Sathish Conway, Josie Diamond, Marcin Fox and colleagues, with an educational bill from [employer] Thrive Questionnaire Date Thrive assessed: 03/15/25 I am a: Patient Within the past 12 months, did the food you bought not last and you didn't have the money to get more?: Never true Within the past 12 months, did you worry whether your food would run out before you got money to buy more?: Never true Do you have trouble paying for medicines?: No Do you have trouble getting transportation to medical appointments?: No Do you have trouble paying your heating and electricity bill?: No Do you have trouble taking care of your child, family member or friend?: No Do you have trouble with day-to-day activities such as bathing, preparing meals, shopping, managing finances, etc.?: No Are you currently unemployed and looking for a job?: No Are you interested in more education?: No THRIVE Score: 0 AUDIT C Alcohol Use Questionnaire (AUDIT-C) 1. How often do you have a drink containing alcohol?: Monthly or less 2. How many drinks containing alcohol do you have on a typical day when you are drinking?: 1 or 2 3. How often do you have six or more drinks on one occasion?: Less than monthly Total Score: 2 JC-7 AMB Questionnaire JC-7 Date JC - 7 assessed: 03/15/25 Feeling nervous, anxious, or on edge: 0 = Not at all Not being able to stop or control worryin = Not at all Worrying too much about different things: 0 = Not at all Trouble relaxin = Not at all Being so restless that it is hard to sit still: 0 = Not at all Becoming easily annoyed or irritable: 0 = Not at all Feeling afraid as if something awful might happen: 0 = Not at all Total JC-7 score (0-4 normal; 5-9 mild; 10-14 moderate; 15-21 severe): 0 Source: Developed by Drs. Sathish Conway, Josie Diamond, Marcin Fox and colleagues, with an educational bill from [employer] Review of Systems Narrative - Constitutional: Reports lethargy, fatigue, and daytime somnolence requiring naps. - Neurological: Reports cognitive clouding. Denies headaches or vision changes. - ENT: Reports mild snoring. - Cardiovascular: Denies chest pain. - Respiratory: Denies shortness of breath. - Gastrointestinal: Reports normal bowel movements. Denies nausea or vomiting. - Genitourinary: Reports normal urination. All systems reviewed & are unremarkable except as reviewed in HPI and above Physical exam (Primary Care) Vital Signs: Last Vital Signs Temp 98.2 F 03/15/25 08:10 Pulse 62 03/15/25 08:10 BP 128/80 03/15/25 08:10 Pulse Ox 98 03/15/25 08:10 Oxygen Delivery Method Room Air 03/15/25 08:10 BMI result Body Mass Index 26.8 Tobacco/Smoking Status: Tobacco use Status Tobacco use date assessed 03/15/25 03/15/25 08:11 Patient Tobacco Use Status Never used Tobacco 03/15/25 08:11 e-Cigarette/Vaping Use Never Used 03/15/25 08:11 PHQ-9: PHQ-9 Score PHQ-9: Total score 7 03/15/25 09:05 Thrive Assessment: Date of Thrive Assessment Date Thrive assessed 03/15/25 03/15/25 08:11 Narrative General: Alert and oriented, Well nourished, No acute distress, Reports feeling lethargic. Eye: Pupils are equal, round and reactive to light, Intact accommodation, Extraocular movements are intact, Normal conjunctiva, Vision unchanged. HENT: Normocephalic, Atraumatic, Tympanic membranes are clear, Normal hearing, Oral mucosa is moist, No pharyngeal erythema, Ear canals patent. Respiratory: Lungs CTA bilaterally, No wheeze, Respirations are non-labored. Cardiovascular: Regular rate, Regular rhythm, S1 auscultated, S2 auscultated, No murmur, Good pulses equal in all extremities, Normal peripheral perfusion, No edema. Gastrointestinal: Soft, Non-tender, Non-distended, Normal bowel sounds, No organomegaly. Musculoskeletal: Normal range of motion, Normal strength, No tenderness, No swelling, No deformity, Normal gait. Integumentary: Warm, Dry, [place], Intact. Neurologic: Alert, Oriented, Normal sensory, Normal motor function, No focal defects, Cranial Nerves II-XII are grossly intact, Normal deep tendon reflexes. Psychiatric: Cooperative, Appropriate mood & affect, Normal judgment. Coding Level of Care Code Est Pt Level 4 (25752) Complex EM visit Add On G2211 Diagnoses Fatigue, unspecified type R53.83 Fatigue type: unspecified Other hyperlipidemia E78.49 Hyperlipidemia type: other hyperlipidemia Anxiety F41.9 Assessment & Plan Assessment & Plan (1) Fatigue: Comment: - The patient's primary complaint is lethargy with associated daytime somnolence and cognitive clouding. - His self-initiated vitamin B12 injections are deemed unnecessary given his borderline anemia (Hgb 13.4) with a normal MCV, and the effect is likely placebo. - The differential diagnosis includes obstructive sleep apnea (BAILEE), vitamin D deficiency, and iron deficiency. - Hypothyroidism is less likely given a normal TSH four months ago. - The plan is to order a sleep study to evaluate for BAILEE and check labs for vitamin D, B12, folate, and an iron panel. - The patient was educated on sleep hygiene, including maintaining a consistent schedule and avoiding screens before bed. - He was advised to discontinue B12 injections. - Follow-up is planned in approximately two months to review test results. Code(s): R53.83 - Other fatigue Category: Medical Qualifiers: Fatigue type: unspecified Qualified Code(s): R53.83 - Other fatigue (2) Hyperlipidemia: Comment: - The patient has been on statin therapy since age 24 and is currently taking atorvastatin 20 mg. - The plan is to continue the current dosage. - We will repeat his labs in six months at his physical exam in October and reassess the need for continued statin therapy at that time. Code(s): E78.5 - Hyperlipidemia, unspecified Category: Medical Qualifiers: Hyperlipidemia type: other hyperlipidemia Qualified Code(s): E78.49 - Other hyperlipidemia (3) Anxiety: Comment: - The patient is managed on paroxetine 10 mg and reports a history of multiple unsuccessful attempts to wean off the medication. - The plan is to continue paroxetine 10 mg daily due to demonstrated need. Code(s): F41.9 - Anxiety disorder, unspecified Category: Medical Plan: Health Maintenance: - Sleep hygiene: Discussed the importance of a consistent sleep schedule and avoiding screens before bed to improve sleep quality. - Diet: Advised to avoid caffeine and energy drinks after 2 PM. - Exercise: Patient's current activity level, including playing hockey twice a week and running, was acknowledged as good. - Preventative Screening: Labs for vitamin B12, folate, vitamin D, and iron will be checked. - Cardiovascular Risk Reduction: Discussed the potential link between untreated sleep apnea and cardiac arrhythmias like atrial fibrillation. - Future Care: A physical exam is scheduled for October, where labs will be repeated to reassess statin therapy. Patient was informed and verbally consented to the use of an ambient scribe for clinic note documentation during this visit. Plan I explained to the patient that his symptoms of lethargy are unlikely to be from a vitamin B12 deficiency, as his previous labs do not support this, and advised that the temporary relief from B12 shots is likely a placebo effect. I discussed that his symptoms, including fatigue and mild snoring, are more suggestive of obstructive sleep apnea, a common but underdiagnosed condition that can lead to other health problems like atrial fibrillation. I have ordered a sleep study to investigate this and also ordered blood tests to check his vitamin D, B12, folate, and iron levels. We reviewed his medications, and I recommended he continue paroxetine for anxiety given his history of being unable to stop it. We agreed he would continue his atorvastatin for now, with a plan to re-evaluate the need for it after repeating labs at his physical in October. I provided guidance on sleep hygiene, such as maintaining a consistent schedule and avoiding screens before bed. A follow-up visit is planned in about two months to review all the results. Orders: Orders Vitamin D 25-OH Total Today R53.83 - Other fatigue IRON PROFILE Today R53.83 - Other fatigue RT PSG in-lab sleep study Today R53.83 - Other fatigue Vitamin B12 and Folate Today R53.83 - Other fatigue Patient Instructions: - Please go to the lab to have your blood drawn today. We will be checking your vitamin D, B12, folate, and iron levels. - You will be contacted to schedule a sleep study. It is important to complete this test to find out what is causing your fatigue. - Stop taking the vitamin B12 shots, as they are not medically necessary for you. - Continue taking your paroxetine 10 mg for anxiety and your atorvastatin 20 mg for cholesterol as prescribed. - To improve your sleep, try to go to bed and wake up at a consistent time. Avoid using your phone or other screens for at least 30-60 minutes before bed. - Do not drink coffee or energy drinks after 2:00 PM. - We will see you back in the office in about two months to go over your test results.
[2025-03-15 08:10] VITALS: BP 128/80; PULSE 62; TEMP 36.8; O2SAT 98; BMI 26.8
--- OUTSIDE RECORDS SUMMARY | 2025-03-15 08:46 | XMS_ITS | Patient Health Record ---
Author Organization [facility] Address [address] [place] [address] Care Team Providers Care Edge Burnisher Uppers Name Role Phone Maurice (RETIRED) Kevan RAMOS Primary Care Provide r Sathish Dia Unavailable [phone] Allergies Allergen (clinical drug ingredient) Drug/Non Drug [...] Section Notes: Nonsmoker; occ alcohol on e weekends Problems Problem Type SNOMED Code ICD Code Onset Dates Problem Status W/U Status Risk Notes Problem Screening for malignant neoplasm of colon (010435055) Encounter for screening for malignant neoplasm of colon (Z12.11) Active confirmed Problem Preprocedural examination ([id number]) Preprocedural examination (Z01.818) Active confirmed Plan Of Treatment Future Test Test Name Order Date COLONOSCOPY 04/02/2020 Insurance Providers Payer Name Payer Address Payer Phone Subscriber Number Group Number Insured Name Patient Relationship to Insured Coverage Start Date Coverage End Date [place] [address] [place], [place] [phone] [id number] SAMM SERRANO Self - patient is the insured Medical (General) History Medical History History ICD Code Hyperlipidemia Anxiety Diverticulitis in 02/2020-treated with o utpatient antibiotics Denies KS,DM,CVA,Lung disease,renal dise ase Surgical History Surgery Date(Month/Year) ankle surgery - broken left carpal tunnel - right wrist
== END 2025-03-15 09:10 | disposition home or self-care (01) ==
LOC: HO.HMCHD 08:33
PROVIDERS: PCP Internal Medicine; Visit Provider Student in an Organized Health Care Education/Training Program
DX: R53.83 Other fatigue (principal); E78.49 Other hyperlipidemia; F41.9 Anxiety disorder, unspecified

== ENCOUNTER 2025-04-08 11:15 | Outpatient (REF) | payer BC, SELFPAY ==
[2025-04-08 15:45] LABS: Iron 156 mcg/dL (45-160); Percent Iron Saturation 53 % (15-50); Total Iron Binding Capacity 293 mcg/dL (228-428); Unsaturated Iron Binding 137 ug/dL
[2025-04-08 17:12] LABS: Folate 15.2 ng/mL (> or = 4.0); Vitamin B12 1231 pg/mL (200-900)
== END 2025-04-08 11:16 | disposition home or self-care (01) ==
LOC: HO.HMGCLDS 11:15
PROVIDERS: PCP Student in an Organized Health Care Education/Training Program; Visit Provider Student in an Organized Health Care Education/Training Program
DX: Z13.21 Encounter for screening for nutritional disorder (principal); R53.83 Other fatigue
CPT/HCPCS: 36415; 82306; 82607; 82746; 83540